=== PATIENT | female | born 1985 | race Hispanic/Latino ===

== ENCOUNTER 2018-08-01 08:30 | Outpatient (RCR) | payer OTHER, SELFPAY | END 2018-08-07 23:59 | LOC: DC 08:30 | PROVIDERS: Visit Provider Obstetrics & Gynecology | DX: Z71.3 Dietary counseling and surveillance (principal); O24.419 Gestational diabetes mellitus in pregnancy, unspecified control | CPT/HCPCS: 97802; G0108 ==

== ENCOUNTER 2018-08-10 10:52 | Outpatient (RCR) | payer OTHER, SELFPAY | END 2018-09-07 23:59 | LOC: DC 10:52 | PROVIDERS: Visit Provider Obstetrics & Gynecology | DX: O24.419 Gestational diabetes mellitus in pregnancy, unspecified control (principal); Z71.3 Dietary counseling and surveillance; Z3A.00 Weeks of gestation of pregnancy not specified ==

== ENCOUNTER 2018-08-14 15:31 | Outpatient (CLI) | payer OTHER, SELFPAY ==
[2018-08-14 15:38] VITALS: BMI 50.3
--- NOTE | 2018-08-15 14:06 | OB.TRI.NOTE ---
History of Present Illness Date of Service: 08/14/18 Was patient seen by the physician?: No Reason For Visit: NON STRESS TEST Date of Service: 08/14/18 History of Present Illness: 33 yo gestational diabetic female with high BMI, for NST. has been referred to MFM due to very high 1 hr glucola. 3 hr GTT not done. Started on Metformin 500 mg po q hs and reports her blood sugars are all under 120 at 1 hr pp. Allergies No Known Allergies Allergy (Verified 08/14/18 15:38) NST - FHR Rate Baby A Variability:: Moderate Accelerations:: 10 x 10 Decelerations:: None NST Reactive:: Yes, Appropriate for gestational age FHR Category:: Category I Uterine Activity:: No UCs noted Impression/Plan 31 6/7 wk gestational diabetes on Metformin NST reassuring, not classically reactive. continue NST or BPP q 3-4 d, follow up in ofc and with MFM as planned
== END 2018-08-14 16:40 | disposition home or self-care (01) ==
PROVIDERS: Referring Provider Obstetrics & Gynecology; Visit Provider Obstetrics & Gynecology
DX: O24.415 Gestational diabetes mellitus in pregnancy, controlled by oral hypoglycemic drugs (principal); Z3A.32 32 weeks gestation of pregnancy
CPT/HCPCS: 59025

== ENCOUNTER 2018-08-24 18:25 | Outpatient (CLI) | payer OTHER, SELFPAY ==
[2018-08-24 18:57] VITALS: BMI 49.3
--- NOTE | 2018-08-24 19:18 | OB.TRI.NOTE ---
- Problem List (1) Gestational diabetes mellitus (GDM) affecting Status: Chronic History of Present Illness Date of Service: 08/24/18 Was patient seen by the physician?: Yes Reason For Visit: NST Date of Service: 08/24/18 Final LORE: 10/06/18 Gestational age: 34 Weeks and 0 Days History of Present Illness: Seen for scheduled NST due to gestational diabetes. Has good movement at home. Allergies No Known Allergies Allergy (Verified 08/14/18 15:38) Physical Exam General: Alert, Oriented x3, Cooperative, No apparent distress Abdomen: Soft, Non Tender, Non-Distended, Gravid, Obese, Appropriate for Gestational Age Extremities:: No edema NST - FHR Rate Baby A Baseline: 1130s Variability:: Moderate Accelerations:: 15 x 15 Decelerations:: None NST Reactive:: Yes, Appropriate for gestational age FHR Category:: Category I Uterine Activity:: none Impression/Plan 33 weeks with reassuring heart rate tracing. F/U in office as scheduled.
== END 2018-08-24 19:25 | disposition home or self-care (01) ==
LOC: WPOUT 18:29 → WP 18:30
PROVIDERS: Visit Provider Obstetrics & Gynecology
DX: O24.415 Gestational diabetes mellitus in pregnancy, controlled by oral hypoglycemic drugs (principal); Z79.84 Long term (current) use of oral hypoglycemic drugs; Z79.899 Other long term (current) drug therapy; Z3A.33 33 weeks gestation of pregnancy
CPT/HCPCS: 59025

== ENCOUNTER 2018-08-31 18:25 | Outpatient (CLI) | payer OTHER, SELFPAY ==
[2018-08-31 18:56] VITALS: BMI 50.8
--- NOTE | 2018-09-01 08:37 | OB.TRI.NOTE ---
History of Present Illness Date of Service: 08/31/18 Was patient seen by the physician?: No Reason For Visit: NST Date of Service: 08/31/18 Final LORE: 10/06/18 Final LORE Source: US <20 weeks Gestational age: 34 Weeks and 6 Days History of Present Illness: 33 yo female at 34 6/7 wk with gestational diabetes on Metformin 1500 mg q hs and 500 mg q am. For scheduled NST. Following with MFM. Has declined insulin and thus far blood sugar OK on Metformin. Morbidly obese Allergies No Known Allergies Allergy (Verified 08/31/18 18:58) NST - FHR Rate Baby A Baseline: 120-130 with accels to 150s Variability:: Moderate Accelerations:: 15 x 15 Decelerations:: None NST Reactive:: Yes, Appropriate for gestational age FHR Category:: Category I Uterine Activity:: no regular UCs Impression/Plan 34 6/7 wk morbidly obese female., gestational diabetes on Metformin NST reactive continue weekly BPP with MFM continue weekly NST 3-4 d later at [facility] for twice weekly surveillance Growth sonos per MFM with plan for induction of labor by 39 wks to C/S if EFW > 4500. Keep ofc appt as scheduled.
--- NOTE | 2018-09-01 08:41 | OB.TRI.HP_ITS ---
History of Present Illness Date of Service: 08/31/18 Was patient seen by the physician?: No Reason For Visit: NST Date of Service: 08/31/18 Final LORE: 10/06/18 Final LORE Source: US <20 weeks Gestational age: 34 Weeks and 6 Days History of Present Illness: 33 yo female at 34 6/7 wk with gestational diabetes on Metformin 1500 mg q hs and 500 mg q am. For scheduled NST. Following with MFM. Has declined insulin and thus far blood sugar OK on Metformin. Morbidly obese Allergies No Known Allergies Allergy (Verified 08/31/18 18:58) NST - FHR Rate Baby A Baseline: 120-130 with accels to 150s Variability:: Moderate Accelerations:: 15 x 15 Decelerations:: None NST Reactive:: Yes, Appropriate for gestational age FHR Category:: Category I Uterine Activity:: no regular UCs Impression/Plan 34 6/7 wk morbidly obese female., gestational diabetes on Metformin NST reactive continue weekly BPP with MFM continue weekly NST 3-4 d later at [facility] for twice weekly surveillance Growth sonos per MFM with plan for induction of labor by 39 wks to C/S if EFW > 4500. Keep ofc appt as scheduled.
== END 2018-08-31 19:45 | disposition home or self-care (01) ==
LOC: WPOUT 18:52 → WP 18:53
PROVIDERS: Referring Provider Obstetrics & Gynecology; Visit Provider Obstetrics & Gynecology
DX: O24.415 Gestational diabetes mellitus in pregnancy, controlled by oral hypoglycemic drugs (principal); O99.213 Obesity complicating pregnancy, third trimester; E66.01 Morbid (severe) obesity due to excess calories; Z79.84 Long term (current) use of oral hypoglycemic drugs; Z3A.34 34 weeks gestation of pregnancy
CPT/HCPCS: 59025; 59050; 99218; G0378

== ENCOUNTER 2018-09-07 18:23 | Outpatient (CLI) | payer OTHER, SELFPAY ==
[2018-09-07 19:14] VITALS: BMI 51.9
--- NOTE | 2018-09-17 21:34 | OB.TRI.NOTE ---
History of Present Illness Was patient seen by the physician?: No Reason For Visit: NST Date of Service: 09/13/18 Final LORE: 10/06/18 Final LORE Source: US <20 weeks Gestational age: 36 Weeks and 5 Days History of Present Illness: 36+ week intrauterine presents for routine nonstress test for elevated body mass index. Allergies No Known Allergies Allergy (Verified 08/31/18 18:58) NST - FHR Rate Baby A NST Reactive:: Yes FHR Category:: Category I Impression/Plan 36+ week intrauterine with reactive nonstress test. Elevated BMI. Continuing present care.
== END 2018-09-07 19:17 | disposition home or self-care (01) ==
LOC: WPOUT 18:27 → WP 18:28
PROVIDERS: Referring Provider Obstetrics & Gynecology; Visit Provider Obstetrics & Gynecology
DX: Z34.93 Encounter for supervision of normal pregnancy, unspecified, third trimester (principal); Z3A.36 36 weeks gestation of pregnancy
CPT/HCPCS: 59025; 59050; 99218; G0378

== ENCOUNTER → 2018-09-10 15:00 | Outpatient (CLI) | payer OTHER, SELFPAY ==
[2018-09-07 19:14] VITALS: BMI 51.9
[2018-09-10 15:50] LABS: Protein, Urine (Random) 38.5 mg/dL (<11.9)
[2018-09-10 16:39] LABS: ALB/GLOB Ratio 0.6 RATIO (0.9-2.4); AST(SGOT) 16 U/L (15-37); Alanine Aminotransfer ALT/SGPT 15 U/L (13-56); Albumin, Serum 2.3 g/dL (3.2-5.0); Alkaline Phosphatase 118 U/L (45-117); Anion Gap 9 (5-15); BUN 11 mg/dL (7-18); BUN/Creat Ratio 17.5 RATIO (10-20); Calcium,Total 8.8 mg/dL (8.5-10.1); Chloride 106 mmol/L (98-107); Creatinine, Serum 0.63 mg/dL (0.55-1.02); EST Glomerular Filtration Rate 116 mL/min (>60); Est Glom Filt Rate - Afr Amer 141 mL/min (>60); Globulin 4.1 g/dL (2.2-4.2); Glucose 82 mg/dL (74-106); LDH 204 U/L (84-246); Potassium 4.1 mmol/L (3.5-5.1); Protein, Total 6.4 g/dL (6.4-8.2); Sodium Level 136 mmol/L (136-145); Uric Acid 4.7 mg/dL (2.6-6.0)
[2018-09-10 16:44] LABS: Hematocrit 34.2 % (37-47); Hemoglobin 10.8 g/dl (12.0-15.0); Mean Corp Hgb Conc 31.6 g/gl (32-36); Mean Corpuscular Hgb 25.6 pg (27.0-32.0); Mean Platelet Vol. 10.2 fl (6.2-12.0); Platelet Count 316 K/mm3 (150-450); RBC Distribution Width CV 14.8 % (11.6-14.6); RBC Distribution Width SD 42.7 fl (35.1-43.9); Red Blood Count 4.22 M/mm3 (4.2-5.4); White Blood Count 11.1 K/mm3 (4.4-11.0)
[2018-09-10 17:28] LABS: Scan Indicated on CBC? Y/N NO
== END ==
DX: O13.3 Gestational [pregnancy-induced] hypertension without significant proteinuria, third trimester (principal); Z3A.00 Weeks of gestation of pregnancy not specified
CPT/HCPCS: 36415; 80053; 82570; 83615; 84156; 84550; 85027

== ENCOUNTER 2018-09-13 17:04 | Outpatient (CLI) | payer OTHER, SELFPAY ==
[2018-09-13 17:29] VITALS: BMI 51.6
--- NOTE | 2018-09-17 21:45 | OB.TRI.NOTE ---
History of Present Illness Date of Service: 09/13/18 Was patient seen by the physician?: No Reason For Visit: NST Date of Service: 09/13/18 Final LORE: 10/06/18 Final LORE Source: US <20 weeks Gestational age: 36 Weeks and 5 Days History of Present Illness: 36+ week intrauterine presents for routine nonstress test for increased BMI. Allergies No Known Allergies Allergy (Verified 08/31/18 18:58) NST - FHR Rate Baby A NST Reactive:: Yes FHR Category:: Category I Impression/Plan 36+ week intrauterine with reactive nonstress test for increased body mass index. Continuing present care.
== END 2018-09-13 18:00 | disposition home or self-care (01) ==
LOC: WPOUT 17:07 → WP 17:08
PROVIDERS: Referring Provider Obstetrics & Gynecology; Visit Provider Obstetrics & Gynecology
DX: Z34.93 Encounter for supervision of normal pregnancy, unspecified, third trimester (principal)
CPT/HCPCS: 59025

== ENCOUNTER 2018-09-20 17:25 | Outpatient (CLI) | payer OTHER, SELFPAY ==
[2018-09-20 18:15] VITALS: BMI 52.0
--- NOTE | 2018-09-21 08:44 | OB.TRI.NOTE ---
History of Present Illness Date of Service: 09/20/18 Was patient seen by the physician?: No Reason For Visit: NST Date of Service: 09/20/18 Final LORE: 10/06/18 Final LORE Source: US <20 weeks Gestational age: 37 Weeks and 5 Days History of Present Illness: 33 yo female diabetic on Glyburide and seeing MFM also. NST / BPP planned twice weekly. presents for scheduled NST +FM. no UCs noted. No VB. Allergies No Known Allergies Allergy (Verified 08/31/18 18:58) NST - FHR Rate Baby A Baseline: 120-130 avg with accels VERY intermittent tracing +FM and 2/2 BMI Variability:: Moderate Accelerations:: 15 x 15 Decelerations:: None NST Reactive:: Appropriate for gestational age FHR Category:: Category I Uterine Activity:: No UCs noted. Impression/Plan 37 5/7 wk gestational diabetic on Metformin for scheduled NST NST with intermittent tracing noted 2/2 movement and BMI Pt tired and painful with belts in place, hungry Home NST reassuring as active FM. ] Keep scheduled NST in 1 wk, appt with MFM on Mon / Tues of next week Planned induction with very unfavorable cervix. on Sun pm 7 cytotec induction Advised at time of ofc visit earlier in day prior to her NST today the induction will likely be prolonged. Cytotec to [place] bulb pitocin, AROM.
== END 2018-09-20 18:45 | disposition home or self-care (01) ==
LOC: WP 18:11 → WPOUT 18:13
PROVIDERS: Referring Provider Obstetrics & Gynecology; Visit Provider Obstetrics & Gynecology
DX: O24.415 Gestational diabetes mellitus in pregnancy, controlled by oral hypoglycemic drugs (principal); Z3A.37 37 weeks gestation of pregnancy
CPT/HCPCS: 59025; 59050; 99218; G0378

== ENCOUNTER → 2018-09-24 14:51 | Outpatient (CLI) | payer OTHER, SELFPAY ==
[2018-09-20 18:15] VITALS: BMI 52.0
[2018-09-24 15:26] LABS: Hematocrit 34.4 % (37-47); Hemoglobin 10.9 g/dl (12.0-15.0); Mean Corp Hgb Conc 31.7 g/gl (32-36); Mean Corpuscular Hgb 25.4 pg (27.0-32.0); Mean Corpuscular Volume 80.2 fL (81-99); Mean Platelet Vol. 9.9 fl (6.2-12.0); Platelet Count 321 K/mm3 (150-450); RBC Distribution Width CV 14.9 % (11.6-14.6); Red Blood Count 4.29 M/mm3 (4.2-5.4); White Blood Count 14.1 K/mm3 (4.4-11.0)
[2018-09-24 15:36] LABS: Protein, Urine (Random) 135.3 mg/dL (<11.9)
[2018-09-24 15:49] LABS: Scan Indicated on CBC? Y/N NO
[2018-09-24 16:02] LABS: ALB/GLOB Ratio 0.6 RATIO (0.9-2.4); AST(SGOT) 23 U/L (15-37); Alanine Aminotransfer ALT/SGPT 23 U/L (13-56); Albumin, Serum 2.4 g/dL (3.2-5.0); Alkaline Phosphatase 122 U/L (45-117); Anion Gap 9 (5-15); BUN 12 mg/dL (7-18); BUN/Creat Ratio 20.4 RATIO (10-20); Calcium,Total 9.4 mg/dL (8.5-10.1); Chloride 106 mmol/L (98-107); Creatinine, Serum 0.59 mg/dL (0.55-1.02); EST Glomerular Filtration Rate 125 mL/min (>60); Est Glom Filt Rate - Afr Amer 152 mL/min (>60); Globulin 4.1 g/dL (2.2-4.2); Glucose 95 mg/dL (74-106); LDH 224 U/L (84-246); Potassium 4.2 mmol/L (3.5-5.1); Protein, Total 6.5 g/dL (6.4-8.2); Sodium Level 139 mmol/L (136-145); Uric Acid 4.3 mg/dL (2.6-6.0)
== END ==
PROVIDERS: Referring Provider Obstetrics & Gynecology Maternal & Fetal Medicine; Visit Provider Obstetrics & Gynecology Maternal & Fetal Medicine
DX: O16.3 Unspecified maternal hypertension, third trimester (principal); Z3A.00 Weeks of gestation of pregnancy not specified
CPT/HCPCS: 36415; 80053; 82570; 83615; 84156; 84550; 85027

== ENCOUNTER 2018-09-28 09:55 | Inpatient (IN) | payer OTHER, SELFPAY ==
[2018-09-28] VITALS (17 sets, daily range): BP systolic 133–176; BP diastolic 65–92; PULSE 81–99; RESP 16–22; TEMP 36.4–36.9; O2SAT 96–99; BMI 54.1
[2018-09-28] MEDS: Lactated Ringers 1,000 ML 999 ML IV (10:25)
[2018-09-28 10:34] LABS: Absolute Lymphocyte Count 2.36 X10^3/ul (0.83-4.51); Absolute Neutrophil Count 9.1 X10^3/uL (2.0-7.7); Basophil# 0.02 X10^3/uL; Basophil% 0.2 % (0-1); Eosinophil# 0.08 X10^3/uL; Eosinophils% 0.7 % (0-5); Hematocrit 34.4 % (37-47); Hemoglobin 10.9 g/dl (12.0-15.0); Lymphocyte # 2.36 X10^3/ul (4.0); Lymphocyte % 19.2 % (19-41); Mean Corp Hgb Conc 31.7 g/gl (32-36); Mean Corpuscular Hgb 25.7 pg (27.0-32.0); Mean Corpuscular Volume 81.1 fL (81-99); Mean Platelet Vol. 9.6 fl (6.2-12.0); Monocyte# 0.64 X10^3/uL; Monocyte% 5.2 % (0-10); Neutrophil # 9.14 X10^3/uL (2.7-7.7); Neutrophil % 74.2 % (47-70); Platelet Count 320 K/mm3 (150-450); RBC Distribution Width CV 15.1 % (11.6-14.6); RBC Distribution Width SD 44.3 fl (35.1-43.9); Red Blood Count 4.24 M/mm3 (4.2-5.4); White Blood Count 12.3 K/mm3 (4.4-11.0)
[2018-09-28 10:35] LABS: POSITIVE COUNT NO; POSITIVE DIFFERENTIAL NO; POSITIVE MORPHOLOGY NO
[2018-09-28 10:42] LABS: International Normalized Ratio 0.9; Prothrombin Time (Protime)PT. 12.1 SECONDS (11.7-14.9)
[2018-09-28 10:43] LABS: Partial Thromboplast Time 28.6 Seconds (24.1-36.2)
[2018-09-28 10:51] LABS: Bedside Glucose 80 mg/dL (70-110)
[2018-09-28] MEDS: Lactated Ringers 1,000 ML 150 ML IV (11:25)
--- NOTE | 2018-09-28 11:39 | PCM.OPRPT ---
Problem List (1) malpresentation Status: Chronic Qualifiers: malpresentation type: transverse lie Fetus number: single or unspecified fetus Qualified Code(s): O32.2XX0 - Maternal care for transverse and oblique lie, not applicable or unspecified (2) Gestational diabetes mellitus (GDM) affecting Status: Chronic Report of Operation Date of Procedure: 09/28/18 Pre-Operative Diagnosis: Term with transverse lie. Mother with gestational hypertension possible preeclampsia. Gestational Diabetes Post-Operative Diagnosis: Same Surgery/Procedure Performed:: Primary Low Transverse Section Description of Surgical Findings:: Normal appearing uterus, ovaries, and fallopian tubes. Live female in left occiput transverse presentation. weight 6lb9oz. Apgars 9/10. Amniotic fluid clear. chemical unit operator: Freddie Mazariegos Type of Anesthesia:: Spinal Anesthesiologist: Dino Haro Special Medications: none Specimen's removed: cord blood Drains: luciano Estimated Blood Loss (mL): 400cc Fluids Replaced: 1500cc LR Description of Procedure: An US was done prior tot taking to the OR which confirmed transverse lie with head on left side. She was taken to the OR with IV running. heart tones were confirmed and normal. She was given three grams of Ancef intravenously for surgical prophylaxis. Spinal anesthesia was the induced without complication. She was then prepped and draped in the supine position with a leftward tilt and a luciano catheter was placed. Once anesthesia was deemed adequate a Pfannensteil skin incision was made approximately 2 cm above the symphysis pubis. The underlying subcutaneous tissue was dissected down to the level of the fascia using sharp and blunt dissection. The fascia was then incised laterally in the midline. The fascial defect was then extended bilaterally with the Cruz scissors. The upper portion of the fascial defect was then grasped with two Gerardo clamps elevated and the underlying rectus muscles dissected off the fascia with blunt and sharp dissection. In a similar fashion the rectus muscles were dissected off the lower fascial defect. The rectus muscles were then in the midline, the peritoneum identified, and then entered sharply. A bladder blade was placed. A bladder flap was created and the bladder blade replaced. A Pfannensteil skin incision was then made in the anterior lower uterine segment. Once the cavity was entered the uterine defect was enlarged using blunt lateral and superior traction. The vertex was then brought to the incision and delivered atraumatically followed by the body. Delayed cord clamping was employed. The mouth was suctioned with a bulb suction and the baby dried. The baby was then handed off to the waiting nurse for evaluation. The placenta was then delivered manually. The uterus was exteriorized and cleared of all clot and membranes. The uterine incision was the repaired in two layers with #1. Vicryl. The cul de sac was cleared of all clot and membranes. The uterus was returned to the abdomen. The uterine defect was inspected and found to be hemostatic. The peritoneum was then closed with a running stitch of 2-0 Vicryl. The rectus muscles were reapproximated with interrupted sutures of 0-Vicryl. The fascia was closed with a running stitch of #21 Stratofix suture. The subcutaneous tissue was closed in two layers with 2-0 Vicryl. The skin was closed with a subcuticular stitch of 4-0 Monocryl. Sponge, lap, needle and instrument counts were correct. She was taken to her recovery room in stable condition. Grafts/Implants Used: none - Complications none - Admit VTE Documentation VTE Present on Admission: No VTE Mechan Device Prophylaxis: SCD's VTE Pharm Prophylaxis ordered?: No Delivery Classification: Scheduled Final LORE: 10/06/18 Final LORE Source: US <20 weeks Gestational age: 39 Weeks and 0 Days Indications for : Malpresentation, Severe PIH, Unfav. Cervix, - - Gestational Diabetes Description of Procedure: see op note Amniotic Membrane Rupture Type: Artificial Amniotic Fluid Description: Clear Placenta Disposition: [facility] Specimen(s) sent to pathology: cord blood Drain: Luciano to straight drain Fluids Replaced: 1500cc Cord Entanglement: None Nuchal Cord Compression: Without compression Cord Vessel Description: 3 Vessels Esitmated Blood Loss (ml): 400cc Gender: Female (1 minute): 9 (5 minute): 10 Delayed cord clamping: Yes Pre-op Antibiotic Given: - - Ancef 3 grams IV x 1 Pt instructed on risks of surgery: Bleeding, Injury to surrounding structure(s) including bowel and bladder Complications: None - Admit VTE Documentation VTE Present on Admission: No VTE Mechan Device Prophylaxis: SCD's VTE Pharm Prophylaxis ordered?: No
[2018-09-28] MEDS: Sodium Citrate/Citric Acid 30 ML UDC PO (11:52)
[2018-09-28] MEDS: Oxytocin 30 units/NS 500 ml 30 UNITS/500 ML IV.SOLN 167 UNITS IV (12:33)
[2018-09-28] MEDS: Ketorolac 15 MG/ML Vial 30 MG IV ×2 (12:58→18:00)
[2018-09-28 13:56] LABS: Bedside Glucose 73 mg/dL (70-110)
[2018-09-28] MEDS: Lactated Ringers 1,000 ML 100 ML IV ×2 (14:44→18:10)
--- NOTE | 2018-09-28 14:59 | NURSING ---
Chloraprep scrub completed by Misael KAM. Incision site scrubbed for two minutes continuously, followed by abdomen and upper legs/perineum. 3 total scrub brushes used.
[2018-09-28] MEDS: metFORMIN HCl 500 MG Tablet 1500 MG PO (18:00)
[2018-09-28] MEDS: 0.9% Saline Lock 10 ML Syringe IV (18:00)
[2018-09-28] MEDS: Cefazolin 1 GM/50 ML BAG IV (20:27)
[2018-09-29] VITALS (11 sets, daily range): BP systolic 118–153; BP diastolic 68–90; PULSE 75–99; RESP 14–18; TEMP 36.6–37.1; O2SAT 95–99
[2018-09-29] MEDS: Ketorolac 15 MG/ML Vial 30 MG IV ×4 (00:19→17:06)
[2018-09-29] MEDS: Cefazolin 1 GM/50 ML BAG IV (04:10)
[2018-09-29] MEDS: Lactated Ringers 1,000 ML 100 ML IV (04:10)
[2018-09-29] MEDS: 0.9% Saline Lock 10 ML Syringe IV ×3 (06:08→17:06)
[2018-09-29 06:30] LABS: Bedside Glucose 78 mg/dL (70-110)
[2018-09-29 06:31] LABS: Hematocrit 27.4 % (37-47); Hemoglobin 8.6 g/dl (12.0-15.0); Mean Corp Hgb Conc 31.4 g/gl (32-36); Mean Corpuscular Hgb 25.5 pg (27.0-32.0); Mean Corpuscular Volume 81.3 fL (81-99); Mean Platelet Vol. 9.4 fl (6.2-12.0); Platelet Count 267 K/mm3 (150-450); RBC Distribution Width CV 15.1 % (11.6-14.6); RBC Distribution Width SD 43.4 fl (35.1-43.9); Red Blood Count 3.37 M/mm3 (4.2-5.4); Scan Indicated on CBC? Y/N NO; White Blood Count 12.8 K/mm3 (4.4-11.0)
[2018-09-29] MEDS: metFORMIN HCl 500 MG Tablet PO (08:32)
--- NOTE | 2018-09-29 09:54 | PN.OBGYN_ITS ---
Subjective: Doing well. Sitting in chair. Pain reasonably controlled. Tolerating PO. No N/V. Bleeding light, breast feeding. Objective: Afeb VSS. Hgb appropriate. - Physical Exam General: Alert, Oriented x3, Cooperative, No apparent distress Lungs: Clear to auscultation, Normal air movement Cardiovascular: Regular rate, Regular Rhythm Abdomen: Soft, Non Tender, Non-Distended, - - Incision dressing dry Extremities: No edema Neurological: Neuro grossly intact Psych/Mental Status: Normal Affect Comment: Lochia light Vital Signs Temp Pulse Resp BP Pulse Ox 98.4 F 99 16 120/68 96 09/29/18 08:29 09/29/18 08:29 09/29/18 08:29 09/29/18 08:29 09/29/18 08:29 Oxygen Delivery Method Room Air Weight: 286 lb 6.087 oz Body Mass Index (BMI) 54.1 Intake and Output for Last 24 Hours 09/27/18 09/28/18 09/29/18 23:59 23:59 23:59 Intake Total 2249 / 2249 1703 / 1703 Output Total 450 / 450 1200 / 1200 Balance 1799 / 1799 503 / 503 Laboratory Tests Past 24 Hrs 09/28/18 09/28/18 09/28/18 10:15 10:15 10:15 WBC 12.3 H RBC 4.24 Hgb 10.9 L Hct 34.4 L MCV 81.1 MCH 25.7 L MCHC 31.7 L RDW 15.1 H RDW Differential 44.3 H Plt Count 320 MPV 9.6 Immature Gran % (Auto) 0.500 Neut % (Auto) 74.2 H Lymph % (Auto) 19.2 [place] % (Auto) 5.2 Eos % (Auto) 0.7 Baso % (Auto) 0.2 Absolute Neuts (auto) 9.1 H Absolute Lymphs (auto) 2.36 Total Counted Not Reportable PT 12.1 INR 0.9 APTT 28.6 Blood Type O POSITIVE Antibody Screen NEGATIVE 09/29/18 06:15 WBC 12.8 H RBC 3.37 L Hgb 8.6 L Hct 27.4 L MCV 81.3 MCH 25.5 L MCHC 31.4 L RDW 15.1 H RDW Differential 43.4 Plt Count 267 MPV 9.4 Immature Gran % (Auto) Neut % (Auto) Lymph % (Auto) [place] % (Auto) Eos % (Auto) Baso % (Auto) Absolute Neuts (auto) Absolute Lymphs (auto) Total Counted PT INR APTT Blood Type Antibody Screen POC Glucose 09/29/18 09/28/18 09/28/18 06:22 13:51 10:46 POC Glucose 78 73 80 Medical Necessity - Tobacco Use Smoking Status: Former smoker Assessment/Plan Doing well on POD#1 S/P primary LTCS. Plan to d/c mustapha later today. Routine PO care.
--- NOTE | 2018-09-29 09:59 | DCINST_ITS ---
Discharge Diet: No Restrictions Discharge Activity: Return to Normal Activity, May Not Drive, May not drive while taking narcotic pain medications., May Shower Return to work on:: 11/29/18 May shower in (days): 0 May resume sexual activity in: 4-6 weeks Call your doctor if your incision/area has: Continuous Slow Oozing, Sudden Increased Bleeding, Increased Pain/ Swelling, Increased Redness, Foul Smelling Discharge, Swelling at the incision site Call your doctor if you observe: Fever of 101 or Higher, Inability to urinate, Inability to have a bowel movement, Using more than one pad per hour, Shortness of breath, Chest pain, Calf discomfort, Uncontrolled pain Remove Dressing in (days):: 3 Cleanse incision/area with: Soap & Water Additional Instructions: If you experience any of the following, contact your healthcare provider. * Bleeding that soaks a pad every hour for 2 hours * Fever 100.4 or higher * Unrelieved incision or abdominal pain * Swelling, redness, discharge or bleeding from your incision or episiotomy site * Your incision begins to separate * Problems urinating (including inability to urinate or burning while urinating). * Visual changes * Severe headache * Flu-like symptoms * Pain or redness in one of both of your breasts * Pain, warmth, tenderness or swelling in your legs, especially the calf area * Frequent nausea and vomiting * Symptoms of depression or anxiety If you experience any of the following, call 911 or go to the nearest Emergency Room. * Chest pain * Problems breathing * Seizure activity * Partial or complete paralysis of a body part, slurred speech, weakness or drooping of the face, or a sudden inability to walk or hold your balance Allergies/Adverse Reactions: Allergies No Known Allergies Allergy (Verified 08/31/18 18:58) Medications to take at Discharge Vits [Prenatabs FA ] 3 tablet PO DAILY 08/14/18 Loratadine [Claritin] 10 mg PO DAILY 08/24/18 Ibuprofen [Motrin] 600 mg PO Q6H PRN PRN #30 tab 09/29/18 Oxycodone [Oxyir] 5 - 10 mg PO Q4H PRN PRN 7 Days #30 tab 09/29/18 The following prescriptions were given: Ibuprofen [Motrin] 600 mg PO Q6H PRN PRN #30 tab PRN Reason: pain or cramping Prescription Printed Oxycodone [Oxyir] 5 - 10 mg PO Q4H PRN PRN 7 Days #30 tab PRN Reason: Mod-Severe Pain (4-01/17) Prescription Printed Follow-Up: Call to make an appointment with your doctor for an incision check in 1-2 weeks. You will also need a 6 week post- follow up appointment. Test results from this visit will be discussed in further detail at your follow- up appointment, if applicable. Please Follow Up With: Alexander Toney MD When: one week Proposed Discharge Date: 09/29/18
[2018-09-29] MEDS: Acetaminophen 500 MG Tablet 1000 MG PO ×2 (12:24→23:11)
[2018-09-29] MEDS: metFORMIN HCl 500 MG Tablet 1500 MG PO (17:06)
[2018-09-29] MEDS: Senna/Docusate Sodium 1 Tablet PO (20:44)
[2018-09-30] MEDS: Ketorolac 15 MG/ML Vial 30 MG IV ×2 (00:05→05:54)
[2018-09-30] MEDS: 0.9% Saline Lock 10 ML Syringe IV (00:06)
[2018-09-30 02:15] VITALS: BP 152/92; PULSE 91; RESP 18; TEMP 36.5
--- NOTE | 2018-09-30 08:48 | PCM.PN.OB ---
Subjective: Doing well. Pain reasonably controlled. Bleeding light. Breast feeding. Objective: Afeb VSS - Physical Exam General: Alert, Oriented x3, Cooperative, No apparent distress Abdomen: Soft, Non Tender, Non-Distended, - - Incision dressing dry Extremities: No edema Skin: No rashes Neurological: Neuro grossly intact Psych/Mental Status: Normal Affect Comment: Lochia light Vital Signs Temp Pulse Resp BP Pulse Ox 97.7 F L 91 18 152/92 H 96 09/30/18 02:15 09/30/18 02:15 09/30/18 02:15 09/30/18 02:15 09/29/18 20:46 Oxygen Delivery Method Room Air Weight: 286 lb 6.087 oz Body Mass Index (BMI) 54.1 Intake and Output for Last 24 Hours 09/28/18 09/29/18 09/30/18 23:59 23:59 23:59 Intake Total 2249 / 2249 2621.1 / 2621.1 Output Total 450 / 450 4050 / 4050 Balance 1799 / 1799 -1428.9 / -1428.9 Medical Necessity - Tobacco Use Smoking Status: Former smoker Assessment/Plan Doing well on POD#2. Doing well. Continue routine PO care.
--- NOTE | 2018-09-30 08:51 | PCM.DC.SUM ---
Discharge Date and Diagnosis Date of Admission: 09/28/18 Date of Discharge: 10/01/18 - Primary Discharge Diagnosis S/P Primary LTCS - Secondary Discharge Diagnosis Chronic Problems Gestational diabetes mellitus (GDM) affecting (Chronic) malpresentation (Chronic) Hospital Course and Treatment Operations: - - Primary LTCS Summary of Care Provided: The patient is a 33 year old F [admitted for primary section secondary to transverse lie and gestational hypertension with recommendation for delivery by MFM. This was performed without complication with delivery of a live female without complication. Post operative course unremarkable. Discharged home on POD#3.] - Physical Exam Vital Signs Temp Pulse Resp BP Pulse Ox 97.7 F L 91 18 152/92 H 96 09/30/18 02:15 09/30/18 02:15 09/30/18 02:15 09/30/18 02:15 09/29/18 20:46 Oxygen Delivery Method Room Air Weight: 286 lb 6.087 oz Body Mass Index (BMI) 54.1 Intake and Output for Last 24 Hours 09/28/18 09/29/18 09/30/18 23:59 23:59 23:59 Intake Total 2249 / 2249 2621.1 / 2621.1 Output Total 450 / 450 4050 / 4050 Balance 1799 / 1799 -1428.9 / -1428.9 Discharge Diet: No Restrictions Discharge Activity: Return to Normal Activity, May Not Drive, May not drive while taking narcotic pain medications., May Shower Return to work on:: 11/29/18 May shower in (days): 0 May resume sexual activity in: 4-6 weeks Call your doctor if your incision/area has: Continuous Slow Oozing, Sudden Increased Bleeding, Increased Pain/ Swelling, Increased Redness, Foul Smelling Discharge, Swelling at the incision site Call your doctor if you observe: Fever of 101 or Higher, Inability to urinate, Inability to have a bowel movement, Using more than one pad per hour, Shortness of breath, Chest pain, Calf discomfort, Uncontrolled pain Remove Dressing in (days):: 3 Cleanse incision/area with: Soap & Water Home Medications: Medications to take at Discharge RX: Vits [Prenatabs FA ] 3 tablet PO DAILY 08/14/18 RX: Loratadine [Claritin] 10 mg PO DAILY 08/24/18 RX: Ibuprofen [Motrin] 600 mg PO Q6H PRN PRN #30 tab 09/29/18 RX: Oxycodone [Oxyir] 5 - 10 mg PO Q4H PRN PRN 7 Days #30 tab 09/29/18 Following Prescrptions Were Given to Patient: RX: Ibuprofen [Motrin] 600 mg PO Q6H PRN PRN #30 tab PRN Reason: pain or cramping Prescription Printed RX: Oxycodone [Oxyir] 5 - 10 mg PO Q4H PRN PRN 7 Days #30 tab PRN Reason: Mod-Severe Pain (4-01/17) Prescription Printed Please Follow Up With: Alexander Toney MD When: one week Disposition: Home Minutes spent on discharge:: 15 Patient Condition:: Good Medical Necessity - Tobacco Use Smoking Status: Former smoker Meaningful Use Info Meaningful Use Diagnoses (Choose all that apply): None applicable
[2018-09-30 08:56] VITALS: PULSE 82; RESP 18; TEMP 36.6
[2018-09-30 11:00] VITALS: BP 156/90
[2018-09-30] MEDS: Ibuprofen 600 MG Tablet PO ×2 (12:23→20:16)
[2018-09-30] MEDS: Prenatal Vits Tablet 3 TABLET PO (12:25)
[2018-09-30 15:05] VITALS: PULSE 78; RESP 18; TEMP 36.6
[2018-09-30] MEDS: Acetaminophen 500 MG Tablet 1000 MG PO (16:17)
[2018-09-30 16:28] VITALS: BP 151/78
[2018-09-30] MEDS: Senna/Docusate Sodium 1 Tablet PO (20:17)
[2018-09-30 20:21] VITALS: BP 156/97; PULSE 96; RESP 18; TEMP 36.4
[2018-10-01 02:00] VITALS: BP 156/93; PULSE 90; RESP 18; TEMP 36.7
[2018-10-01] MEDS: Acetaminophen 500 MG Tablet 1000 MG PO ×2 (02:21→12:52)
[2018-10-01 07:20] VITALS: BP 151/91; PULSE 90; RESP 20
--- NOTE | 2018-10-01 07:53 | PCM.PN.OB ---
Subjective: POD#3 Primary C/S PIH, transverse lie Gestational diabetes Doing OK. Taking Ibuprofen and tylenol. Hoping to avoid narcotics (but reminded her she has those also to take prn). breast feeding. Would like to go home toady after assistance with area development consultant, nursing. Asking when to take dressing off, driving restrictions, etc. Objective: Sitting up in chair eating breakfast. NAD Intermittent eye contact. - Physical Exam General: Alert, Oriented x3, Cooperative, No apparent distress HEENT: Atraumatic Neck: Supple Abdomen: Soft Skin: Incision - Mepilex dressing CDI. Neurological: Cranial nerves II-XII grossly intact Psych/Mental Status: Normal Affect Vital Signs Temp Pulse Resp BP Pulse Ox 98.0 F 90 18 156/93 H 96 10/01/18 02:00 10/01/18 02:00 10/01/18 02:00 10/01/18 02:00 09/29/18 20:46 Oxygen Delivery Method Room Air Weight: 129.9 kg Body Mass Index (BMI) 54.1 Intake and Output for Last 24 Hours 09/29/09/30/10/01/18 23:59 23:59 23:59 Intake Total 2621.1 / 2621.1 Output Total 4050 / 4050 Balance -1428.9 / -1428.9 Medical Necessity - Tobacco Use Smoking Status: Former smoker Assessment/Plan POD#3 Primary C/S for PIH, approx 37 wks EGA Gestational diabetic, transverse lie Stable postop Requests dischg home today RTO in 1-2 wk for postop incision check, prn sooner. Plan 6 wk 2 hr GTT to determine if pregestational diabetes.
[2018-10-01] MEDS: Ibuprofen 600 MG Tablet PO (08:30)
[2018-10-01] MEDS: Senna/Docusate Sodium 1 Tablet PO (08:30)
[2018-10-01 14:00] VITALS: BP 151/96; PULSE 88; RESP 18; TEMP 36.9
[2018-10-01 17:55] VITALS: BP 154/88; PULSE 88; RESP 18
== END 2018-10-01 18:00 | disposition home or self-care (01) | DRG 788 ==
PROVIDERS: Admitting Provider Obstetrics & Gynecology; Referring Provider Obstetrics & Gynecology; Visit Provider Obstetrics & Gynecology
PROC: 10D00Z1 Extraction of Products of Conception, Low, Open Approach (ICD-10-PCS; CPT 59514; principal; 2018-09-28 11:45)
DX: O32.2XX0 Maternal care for transverse and oblique lie, not applicable or unspecified (principal); O13.4 Gestational [pregnancy-induced] hypertension without significant proteinuria, complicating childbirth; O24.425 Gestational diabetes mellitus in childbirth, controlled by oral hypoglycemic drugs; Z87.891 Personal history of nicotine dependence; Z3A.37 37 weeks gestation of pregnancy; Z37.0 Single live birth
CPT/HCPCS: 76815; 82962; 85025; 85027; 85610; 85730; 86850; 86900; 99218; J7120; A4216; G0378; J2405

== ENCOUNTER 2019-06-16 13:58 | Emergency (ER) | payer OTHER, SELFPAY ==
[2018-09-28 10:27] VITALS: BMI 54.1
[2019-06-16 13:59] VITALS: BP 151/90; PULSE 92; RESP 16; TEMP 36.6; O2SAT 99; BMI 53.0
--- NOTE | 2019-06-16 14:09 | ED.VIS.GI ---
History of Present Illness Informant: Patient, Family - Abdominal Pain/Flank Pain Onset: Today Context: Sudden Onset Timing: Continuous Quality: Sharp, Stabbing Location: Epigastric, RUQ, LUQ Current Severity: Severe Maximum Severity: Severe Worsened by: Food Relieved by: Remaining Still - Nausea/Vomiting/Emesis GI Symptom: Nausea, Vomiting Onset: Today Quality: Nonbilious Severity: Severe Episodes: 2 - Diarrhea/Melena/Hematochezia GI Symptom: Negative for: Diarrhea, Melena, Hematochezia Associated Symptoms: Negative for: Dysuria, Frequency, Hematuria, Urgency Narrative: 34-year-old female denies any significant past medical history presents to the emergency department with abdominal pain nausea and vomiting. She woke up at 5 AM today with some sharp stabbing epigastric abdominal pain that radiates to her left and right upper quadrant and her back. Pain is been constant. It is sharp. She has had 2 episodes of nonbloody emesis. She had 1 normal bowel movement. No hematemesis, coffee-ground emesis, melena or hematochezia. No chest pain or shortness of breath. No urinary symptoms. No back pain. Children have been sick with influenza over the last couple of weeks. She denies history of GERD or peptic ulcer disease. She denies abdominal surgery history other than a . No recent travel or antibiotic use. Prior similar symptoms: No Recent Illness/Hospitalization: No <Martin Seaman - Last Filed: 06/16/19 18:02> <Boo Jay - Last Filed: 06/16/19 23:14> Chief Complaint: Abd Pain Past Medical History Prior records reviewed: Yes Past Medical History: None Surgical History: - - Lives: With Family Smoking Status: Former smoker Alcohol: None Drugs: None <Martin Seaman - Last Filed: 06/16/19 18:02> <Boo Jay - Last Filed: 06/16/19 23:14> - Allergies and Home Meds Allergies/Adverse Reactions: Allergies No Known Allergies Allergy (Verified 06/16/19 14:00) Primary Care Physician: Martin Osorio MD [STAFF PHYSICIAN] - As soon as possible Naomie Henderson MD [STAFF PHYSICIAN] - As soon as possible Review of Systems All systems negative except as indicated General: Denies: Chills, Fever, Malaise Eyes: Denies: Visual changes - bilaterally, Blurred Vision - bilaterally, Diplopia ENT: Denies: Rhinorrhea, Sore throat Cardiovascular: Denies: Chest pain, Palpitations, Heart racing Respiratory: Denies: Dyspnea, Cough, Sputum, Dyspnea on exertion Gastrointestinal: Reports: Abdominal pain, Nausea, Vomiting. Denies: Diarrhea, Constipation, Melena, Hematochezia Genitourinary: Denies: Dysuria, Hematuria, Frequency Musculoskeletal: Denies: Myalgias, Arthralgias, Neck pain, Back pain, Swelling, Extremity Pain Skin: Denies: Rash, Abscess, Abrasions, Wounds Neurological: Denies: Headache, Weakness, Parasthesia, Numbness <Martin Seaman - Last Filed: 06/16/19 18:02> Physical Exam Vital Signs/Narrative: Vital Signs Temp Pulse Resp BP Pulse Ox 06/16/19 13:59 97.8 F 92 16 151/90 H 99 <Martin Seaman - Last Filed: 06/16/19 18:02> Diagnostic/Tx/Re-eval - Medical Decision Making Patient declined analgesia multiple times with I did give her IV fluids and IV Zofran. CBC was remarkable for a white blood cell count of 13. CMP and lipase were both within normal limits. Urinalysis unremarkable as well. Due to the patient's symptoms we obtained a right upper quadrant ultrasound. It demonstrated cholelithiasis without sonographic evidence for acute cholecystitis. Repeat exam the patient's abdomen is soft and nontender. She is tolerating by mouth. Discussed this with her. She will follow-up with primary care, to which she was referred as she does not have a primary care physician in general surgery for further work-up including possible HIDA scan. She was agreeable with our plan we will discharge her home with Zofran all of her questions were answered. Impressions Gallbladder Ultrasound 06/16/19 15:16 IMPRESSION: Cholelithiasis without sonographic evidence of acute cholecystitis. However, please note that the category development analyst reports a positive sonographic Berger sign. If there is continued concern for acute cholecystitis, further evaluation with a nuclear medicine hepatobiliary study can be performed. Enlarged, fatty liver. No focal hepatic lesions identified. Electronically Signed: Jay Castañeda, at 17:29 EDT Tel , Service support , 06/16/19 15:16 US Gallbladder [Gallbladder] [US] Stat Laboratory Results 06/16/19 06/16/19 06/16/19 14:20 14:20 14:32 WBC RBC Hgb Hct MCV MCH MCHC RDW Std Deviation RDW Coeff of David Plt Count MPV Immature Gran % (Auto) Neut % (Auto) Lymph % (Auto) [place] % (Auto) Eos % (Auto) Baso % (Auto) Absolute Neuts (auto) Absolute Lymphs (auto) Nucleated RBC % Sodium 139 Potassium 5.1 Chloride 109 H Carbon Dioxide 20.0 L Anion Gap 10 BUN 9 Creatinine 0.77 Estim Creat Clear Calc 82.19 Est GFR (MDRD) Af Amer 111 Est GFR (MDRD) Non-Af 92 BUN/Creatinine Ratio 11.7 Glucose 149 H Calcium 9.2 Total Bilirubin 0.30 AST 44 H ALT 35 Alkaline Phosphatase 71 Total Protein 8.3 H Albumin 3.3 Globulin 5.0 H Albumin/Globulin Ratio 0.7 L Lipase 77 Urine Color Yellow Urine Clarity Clear Urine pH 5.0 Ur Specific [place] 1.025 Urine Protein 30 H Urine Glucose (UA) Normal Urine Ketones 50 H Urine Occult Blood Negative Urine Nitrite Negative Urine Bilirubin Negative Urine Urobilinogen Normal Ur Leukocyte Esterase Negative Urine RBC 0 SEEN Urine WBC 0-5 SEEN Ur Squamous Epith Cells 0-5 SEEN Urine Bacteria 0 SEEN Urine Mucus 0 SEEN Urine Test Negative 06/16/19 14:46 WBC 13.5 H RBC 5.23 Hgb 14.0 Hct 44.3 MCV 84.7 MCH 26.8 L MCHC 31.6 L RDW Std Deviation 41.5 RDW Coeff of David 13.4 Plt Count 246 MPV 9.4 Immature Gran % (Auto) 0.800 Neut % (Auto) 87.1 H Lymph % (Auto) 9.9 L [place] % (Auto) 1.9 Eos % (Auto) 0.1 Baso % (Auto) 0.2 Absolute Neuts (auto) 11.8 H Absolute Lymphs (auto) 1.34 Nucleated RBC % 0 Sodium Potassium Chloride Carbon Dioxide Anion Gap BUN Creatinine Estim Creat Clear Calc Est GFR (MDRD) Af Amer Est GFR (MDRD) Non-Af BUN/Creatinine Ratio Glucose Calcium Total Bilirubin AST ALT Alkaline Phosphatase Total Protein Albumin Globulin Albumin/Globulin Ratio Lipase Urine Color Urine Clarity Urine pH Ur Specific [place] Urine Protein Urine Glucose (UA) Urine Ketones Urine Occult Blood Urine Nitrite Urine Bilirubin Urine Urobilinogen Ur Leukocyte Esterase Urine RBC Urine WBC Ur Squamous Epith Cells Urine Bacteria Urine Mucus Urine Test <Martin Seaman - Last Filed: 06/16/19 18:02> - Medical Decision Making I supervised the PA and have performed my own pertinent history and physical. Results and treatment plan were discussed. HPI: Patient has epigastric bowel pain that came on acutely at 5:00 this morning. She is vomited twice. No blood in her emesis. No diarrhea. Her last bowel was today. She denies any history of spicy or fatty food intolerance. PE: Abdomen: Soft, moderate epigastric tenderness mild right upper quadrant tenderness no guarding, rebound, or peritoneal signs. Negative Berger sign. Emergency Department course: Labs show a white count of 13.5. This may be due to demargination from vomiting. Otherwise they are unremarkable. Normal LFTs and lipase. Right upper quadrant ultrasound shows gallstones, but no objective signs of cholecystitis. The wall is normal, the common bile duct is normal, and there is no pericholecystic fluid. The patient's exam and history are not consistent with cholecystitis. Treatment Plan: Patient will be discharged with Zofran. Instructed to follow-up with her primary care physician 1 to 2 days if not improving. She is also given the phone number for Dr. Osorio to follow-up with for her gallstones. Return to the emergency department for any worsening symptoms. This note was generated with [employer] dictation software. It may contain incorrect words, spelling, and punctuation that were not noted in review of the chart prior to signing. <Boo Jay - Last Filed: 06/16/19 23:14> ED Disposition <Martin Seaman - Last Filed: 06/16/19 18:02> <Boo Jay - Last Filed: 06/16/19 23:14> - Plan for ED Patient: Disposition: Home or Assisted Living Diagnosis: Nausea and vomiting, Upper abdominal pain, Cholelithiasis Instructions: Gallstones, ABDOMINAL PAIN, Unknown Cause, (Female) Prescriptions: Ondansetron [Zofran Odt] 4 mg PO Q8H PRN PRN #10 tab PRN Reason: Nausea Prescription Printed Referrals: Naomie Henderson MD [STAFF PHYSICIAN] - As soon as possible Martin Osorio MD [STAFF PHYSICIAN] - As soon as possible
[2019-06-16 14:39] LABS: Bacteria 0 SEEN /hpf (None Seen); Mucous, Urine 0 SEEN /hpf (<or=2+); Red Blood Cells-Urine 0 SEEN /hpf (0-5)
[2019-06-16] MEDS: 0.9% Normal Saline 1,000 ML 1000 ML IV (14:45)
[2019-06-16] MEDS: Ondansetron 4 MG/2 ML Vial IV ×2 (14:45→18:23)
[2019-06-16 14:52] LABS: Color, Urine Yellow (Yellow); Glucose, Dipstick Normal (Normal); Ketone-Dipstick 50 mg/dl (Negative); Leukocyte Esterase-Dipstick Negative /ul (Negative); Nitrite-Dipstick Negative (Negative); Occult Blood-Urine Negative /ul (Negative); Protein-Dipstick 30 mg/dl (Negative); Specific Gravity, Urine 1.025 (1.002-1.030); Urine Bilirubin Dipstick Negative (Negative); Urine Clarity Clear (Clear); Urine Urobilinogen Normal (Normal)
[2019-06-16 14:54] LABS: Absolute Lymphocyte Count 1.34 X10^3/uL (0.83-4.51); Absolute Neutrophil Count 11.8 X10^3/uL (2.0-7.7); Basophil# 0.03 X10^3/uL; Basophil% 0.2 % (0-1); Eosinophil# 0.01 X10^3/uL; Eosinophils% 0.1 % (0-5); Hematocrit 44.3 % (37-47); Lymphocyte # 1.34 X10^3/ul (4.0); Lymphocyte % 9.9 % (19-41); Mean Corp Hgb Conc 31.6 g/dL (32-36); Mean Corpuscular Hgb 26.8 pg (27.0-32.0); Mean Corpuscular Volume 84.7 fL (81-99); Mean Platelet Vol. 9.4 fl (6.2-12.0); Monocyte# 0.26 X10^3/uL; Monocyte% 1.9 % (0-10); NRBC Flagged by Analyzer 0 % (0-5); Neutrophil # 11.79 X10^3/uL (2.7-7.7); Neutrophil % 87.1 % (47-70); Platelet Count 246 K/mm3 (150-450); RBC Distribution Width CV 13.4 % (11.6-14.6); RBC Distribution Width SD 41.5 fl (35.1-43.9); Red Blood Count 5.23 M/mm3 (4.2-5.4); White Blood Count 13.5 K/mm3 (4.4-11.0)
[2019-06-16 14:56] LABS: Internal QC Validated? YES +Cl - CLEAR BKGD; Pregnancy, Urine Negative Negative
[2019-06-16 15:08] LABS: Squamous Epithelial Cells - UA 0-5 SEEN /hpf (5-10); White Blood Cells 0-5 SEEN /hpf (0-5)
--- NOTE | 2019-06-16 15:16 | US_ITS ---
STUDY: ABDOMINAL ULTRASOUND - RIGHT UPPER QUADRANT REASON FOR VISIT: Female, 34 years old. Abdominal pain TECHNIQUE: Ultrasound evaluation of the right upper quadrant was performed with real-time and static saravia-scale imaging. TECHNICAL QUALITY: Limited by body habitus. COMPARISON: None. FINDINGS: Liver: The liver measures 22.2 cm. There is increased echogenicity consistent with fatty infiltration. The bile ducts are within normal limits. There is hepatic color flow. The direction of portal flow is hepatopetal. There is no demonstrated mass lesion. Gallbladder: Normal distended gallbladder. The gallbladder wall measures 3 mm. There is a positive sonographic Berger''s sign. There is no pericholecystic fluid. There are multiple echogenic structures within the gallbladder, consistent with multiple gallstones. Common Bile Duct (C.B.D.): The common bile duct measures 4 mm. Pancreas: Normal size of the head, body and tail of the pancreas. There is normal echogenicity of the pancreas. There is no demonstrated pancreatic mass or cyst. Right Kidney: Normal size of the right kidney. The right kidney measures 11.3 cm. Normal renal cortex. There is no demonstrated renal mass or cyst. There is no right hydronephrosis. US/Gallbladder IMPRESSION: Cholelithiasis without sonographic evidence of acute cholecystitis. However, please note that the fuel cell engineer reports a positive sonographic Berger sign. If there is continued concern for acute cholecystitis, further evaluation with a nuclear medicine hepatobiliary study can be performed. Enlarged, fatty liver. No focal hepatic lesions identified. Electronically Signed: Jay Castañeda, at 17:29 EDT Tel , Service support ,
[2019-06-16 15:20] LABS: ALB/GLOB Ratio 0.7 RATIO (0.9-2.4); AST(SGOT) 44 U/L (15-37); Alanine Aminotransfer ALT/SGPT 35 U/L (13-56); Albumin, Serum 3.3 g/dL (3.2-5.0); Alkaline Phosphatase 71 U/L (45-117); Anion Gap 10 (5-15); BUN 9 mg/dL (7-18); BUN/Creat Ratio 11.7 RATIO (10-20); Calcium,Total 9.2 mg/dL (8.5-10.1); Chloride 109 mmol/L (98-107); Creatinine, Serum 0.77 mg/dL (0.55-1.02); EST Glomerular Filtration Rate 92 mL/min (>60); Est Glom Filt Rate - Afr Amer 111 mL/min (>60); Estimated Creatinine Clearance 82.19 ml/min; Glucose 149 mg/dL (74-106); Lipase 77 U/L (73-393); Potassium 5.1 mmol/L (3.5-5.1); Protein, Total 8.3 g/dL (6.4-8.2); Sodium Level 139 mmol/L (136-145)
[2019-06-16 17:00] VITALS: BP 165/74; PULSE 71; RESP 16; O2SAT 98
--- NOTE | 2019-06-16 17:27 | ED.RN ---
SEPSIS SCREEN CANCELED, NOT CURRENT RISK PER MD
[2019-06-16 18:55] VITALS: BP 148/90; PULSE 92; RESP 16; O2SAT 99
== END 2019-06-16 18:56 | disposition home or self-care (01) ==
PROVIDERS: Emergency Provider Physician Assistant Medical
DX: K80.20 Calculus of gallbladder without cholecystitis without obstruction (principal); K76.0 Fatty (change of) liver, not elsewhere classified; Z87.891 Personal history of nicotine dependence
CPT/HCPCS: 76705; 80053; 81001; 81025; 83690; 85025; 96361; 96374; 96376; 99285; J7030; A4216; J2405

== ENCOUNTER 2019-06-20 17:49 | Observation (INO) | payer OTHER, SELFPAY ==
[2019-06-19 14:59] VITALS: BMI 53.0
[2019-06-20] VITALS (24 sets, daily range): BP systolic 140–171; BP diastolic 59–98; PULSE 80–105; RESP 16–21; TEMP 36.4–37.2; O2SAT 91–98; BMI 52.2; BMI 53.2
--- NOTE | 2019-06-20 | GALL_PTH ---
PATIENT: AKBAR COOK LOC: MS2 U#:[id number] AGE/SX: 34/F ROOM: MS208 RE06/20/[address]: Dr. Martin Osorio MD : 1985 BED: 1 DIS: 06/21/2019 SPEC #: [id number] RECD: 06/21/19 07:53 STATUS: MALIK REEverett #: [id number] VIGNESH: 06/20/19 00:[address]: Martin Osorio DEPT: SURGICAL PATHOLOGY RECD BY: Kemal Hong ENTERED: 06/21/19 07:53 SP TYPE: SHIREEN CUEVAS DR: No Primary Care Phys Tissues: Gallbladder, NOS Procedures: Surgery Specimen Level IV HEADER OPERATION: Laparoscopic cholecystectomy with IOC PRE-OP DIAGNOSIS: Acute cholecystitis K81.0 TISSUE SUBMITTED: Gallbladder MICROSCOPIC DIAGNOSIS Gallbladder, cholecystectomy: Acute and chronic hemorrhagic cholecystitis, cholelithiasis and focal cholesterolosis. Focal dysplastic changes. Minute attached pieces of liver parenchymal tissue with macrovesicular steatosis. DEBBIE:rizwana 06/25/19 COMMENT Case has been reviewed in consultation with Dr. Gutierrez who concurs with the above diagnosis. IDC:AM MICROSCOPIC DESCRIPTION Slides are reviewed. GROSS DESCRIPTION Received is one container labeled with the patient's name and designated gallbladder. The specimen consists of a gallbladder measuring 8.5 x 3.5 x 2.8 cm. The external surface is smooth and glistening. Focally, it is granular, hemorrhagic and contains cautery artifact. The lumen of the gallbladder contains greenish mucoid bile and multiple yellow calculi ranging in size from 0.7 to 1.5 cm. The mucosa is bile-stained and without any mass lesions. The gallbladder wall averages 0.5 cm in thickness and is free of mass lesions. Jailor sections of the gallbladder and the cystic duct at margin of resection are submitted in one cassette. / AM:rizwana 06/21/19 Sections of the gallbladder wall reveal congested, hemorrhagic cut surfaces. More sections are submitted in three more cassettes. / SJ:rizwana 06/24/19 TC:2 CPT: 22617
--- NOTE | 2019-06-20 08:58 | PCM.HP.BLA ---
Problem List (1) Acute cholecystitis Status: Acute History and Physical Date of Admission: 06/20/19 Intake Vital Signs 06/19/19 Height 5 ft 2 in 06/19/19 Weight: 290 lb 06/19/19 BMI 53.0 06/19/19 BP 133/85 H 06/19/19 Blood Pressure Location Rt brachial 06/19/19 Position Sitting 06/19/19 Respiration 16 06/19/19 Pulse 93 06/19/19 Pulse Source Monitor 06/19/19 Temp 98.5 F 06/19/19 Temp Source Oral 06/19/19 Pulse Oximetry (%) 95 06/19/19 Oxygen Delivery Method room air Intake Visit Reasons: F/U GALLBLADDER DISCHARGED [facility] ER 06/15 Credit Report Checker Required: No Is patient in pain?: Yes (RUQ/ Right flank) Allergies No Known Allergies Allergy (Verified 06/19/19 15:03) Medications Ethinyl Estradiol/Drospirenone [Drospirenone-Ee 3-0.02 mg Tab] 1 ea PO DAILY 06/16/19 [History Confirmed 06/19/19] Ondansetron [Zofran Odt] 4 mg PO Q8H PRN PRN #10 tab 06/16/19 [Rx Confirmed 06/19/19] amoxicillin 875 mg-potassium clavulanate 125 mg tablet 1 tab PO BID #2 tab 06/19/19 [Rx Confirmed 06/19/19] PFSH Medical History Right flank pain (Acute) RUQ pain (Acute) Cholecystitis (Acute) Abdominal pain (Acute) Gestational diabetes mellitus (GDM) affecting (Chronic) malpresentation (Chronic) Surgical History History of (Acute) Hx of tonsillectomy (Acute) Family History Father Diabetes Heart disease Hypertension CHF (congestive heart failure) High cholesterol Social History (Updated 06/19/19 @ 15:[address] Martin Osorio MD) Smoking Status: Former smoker second hand exposure: No alcohol intake: never substance use type: does not use caffeine: Yes what type of physical activity do you participate in: none frequency: does not exercise HPI HPI HPI: AKBAR COOK, is a 34 F who presents to the office today for HPI HPI HPI: AKBAR COOK, is a 34 F who presents to the office today for acute cholecystitis. Patient presented to the emergency room with nausea and vomiting and epigastric pain radiating to the right posterior back. The patient was sent home and since then has reported continued pain which decreased a little bit today and nausea. ROS General General: No weight change, appetite, fatigue, colon cancer, breast cancer or weakness HEENT HEENT: No difficulty swallowing, eye injury, eye surgery, swollen glands or hoarseness Endo Endocrine: No thyroid disease, diabetes mellitus, thyroid cancer, Hair loss, heat intolerance or cold intolerance Skin Skin: No rash or changing moles Musc Musculoskeletal: No back problems, arthritis, rheumatoid arthritis, gout or joint pain Neuro Neurologic: No weakness Exam Const General: cooperative Nutritional Appearance: obese morbidly obese Orientation: alert, oriented x3 HENMT Head: normal to inspection Ears: hearing grossly normal bilaterally Eyes General: appearance normal, both eyes and all related structures Visual Chung: normal visual chung by confrontation Neck Neck: normal visual inspection Chest Chest palpation & inspection: normal inspection of the chest Resp Effort & Inspection: normal respiratory effort Auscultation: clear to auscultation bilaterally Cardio Rate: regular rate Rhythm: regular rhythm GI Inspection: non-distended Palpation: soft, tender in the RUQ Musc Cervical Spine: normal cervical lordosis, cervical ROM normal Skin General: no rashes or lesions noted Neuro General: alert, oriented x3 Cranial Nerves: CN's II-XI intact bilaterally Cognition: normal cognition Extrem General: normal to inspection, full ROM Psych Appearance: grossly normal Affect: normal affect Assessment & Plan Problems 1. Acute cholecystitis K81.0 Plan The patient presented to the emergency room 3 days ago with right upper quadrant pain rating to the back as well as nausea and vomiting. Patient had ultrasound showed a lot of gallstones as well as a 3 mm gallbladder wall with a positive Berger sign. At that time the patient had an elevated white count with left shift. I believe the patient likely had acute cholecystitis and may continue to have acute cholecystitis. She is not tolerating regular food since the eighth. She is still having right upper quadrant pain. I highly recommended to the patient that she have a laparoscopic cholecystectomy as soon as possible. The patient was very hesitant about surgery but I did describe to her the risks of not having surgery including necrosis of the gallbladder and sepsis. I discussed the procedure in detail with the patient. I discussed the risks, benefits, and alternatives of the procedure. I discussed the risks including but not limited to bleeding, infection, injury to surrounding organs such as the liver, bile duct, bowels. I did discuss the possibility of having to convert to an open procedure as well as the possibility that if any injuries occurred this may necessitate further surgery at a tertiary care center. After a lot of discussion the patient did decide to proceed with laparoscopic cholecystectomy. I will give her Augmentin for tonight and tomorrow morning and I instructed her to stay n.p.o. after midnight and I will perform a laparoscopic cholecystectomy tomorrow afternoon. Martin Osorio MD Pager: [facility] [address] [place] [address], [address] [place] [address] Office:
--- NOTE | 2019-06-20 12:01 | EKG12_ITS ---
Test Reason : POST OP SOB Blood Pressure : / mmHG Vent. Rate : 089 BPM Atrial Rate : 089 BPM P-R Int : 180 ms QRS Dur : 076 ms QT Int : 366 ms P-R-T Axes : 034 001 033 degrees QTc Int : 445 ms Normal sinus rhythm Septal infarct , age undetermined Abnormal ECG Confirmed by YENNIFER WHITEHEAD, CAITLIN ([id number]), medical editor NORY HANNA ([id number]) on 06/25/2019 7:54:10 AM Referred By: Martin Osorio Confirmed By:CAITLIN DE OLIVEIRA MD
[2019-06-20 12:34] LABS: Internal QC Validated? YES +Cl - CLEAR BKGD; Pregnancy, Urine Negative Negative
[2019-06-20] MEDS: Lactated Ringers 1,000 ML 100 ML IV (12:39)
--- NOTE | 2019-06-20 13:00 | RAD_ITS ---
PROCEDURE: INTRAOPERATIVE CHOLANGIOGRAM DATE OF EXAMINATION: 06/20/2019 INDICATION: Female, 34 years old. Following a laparoscopic cholecystectomy an intraoperative cholangiogram was performed by the surgeon. FLUOROSCOPY TIME (if supplied): (0:41) minutes/seconds. Chemotherapy of dose: 45.6 mGy. 3 fluoroscopic runs, 256 images. TECHNIQUE: Under fluoroscopic guidance an intraoperative cholangiogram was performed with serial digital images obtained. FINDINGS: There is normal opacification of the common bile duct, hepatic duct, right and left hepatic ducts. The ducts are normal in size. There is no mucosal irregularity or intraluminal filling defects. The contrast flows into the second portion of the duodenum. RAD/Cholangiogram/ O R,Initial IMPRESSION: Normal intraoperative cholangiogram. Electronically Signed: Coy Estrada MD (Brooks) at 13:01 EDT , Service support ,
[2019-06-20] MEDS: Bupiv/Epi 0.25% 30 ML Vial (14:50)
--- NOTE | 2019-06-20 15:10 | OP.PCM_ITS ---
Problem List (1) Acute cholecystitis Status: Acute Report of Operation Date of Procedure: 06/20/19 Pre-Operative Diagnosis: Acute cholecystitis Post-Operative Diagnosis: Same Surgery/Procedure Performed:: Laparoscopic cholecystectomy with cholangiogram Specimen's removed: Gallbladder and contents Description of Procedure: After obtaining informed consent patient was brought back to the operating room. General anesthesia was induced. The abdomen was prepped and draped in usual sterile fashion. A small incision was made in the right upper quadrant. A 5 mm port was placed with Visiport technique. The abdomen was inflated to 15 mmHg. Next a camera was introduced into the abdomen and the abdomen was inspected. Under direct visualization a 12 mm port was placed through an incision superior to the umbilicus as well as a 5 mm port in the subcostal space and a 5 mm port in the subxiphoid space. Next the gallbladder was elevated and retracted toward the right shoulder. It was incredibly inflamed and adherent to the pericolonic fat. The peritoneum was stripped from the gallbladder. The infundibulum was located and retracted laterally. Next the triangle of Calot was dissected and the cystic duct and cystic artery were identified. Cholangiograms were performed. The Diaz clamp was used to clamp across the infundibulum and the catheter needle was inserted into the gallbladder. Under fluoroscopy contrast was instilled into the gallbladder and the common duct, cystic duct as well as proximal hepatic ducts were identified. There was good filling of the duodenum. There were no filling defects noted in the common bile duct. The clamp was removed as well as the needle and the infundibulum was grasped once more. Three hemolock clips were placed across the cystic duct. The cystic duct was then divided leaving 2 clips on the stump. The cystic artery was clipped and divided in the same fashion. The hook cautery was then used to take the gallbladder off of the gallbladder bed. Hemostasis was obtained. Gallbladder fossa was irrigated and no active bleeding or bile leakage was noted. Next the camera was introduced in the subxiphoid port. An Endopouch bag was placed through the umbilical port and the gallbladder was placed into it. The gallbladder was then removed through the umbilical incision. The camera was then reinserted through the umbilical port. The gallbladder fossa was inspected once more and noted to be hemostatic with no leaking bile. Surgicel powder was sprayed on the gallbladder fossa. The abdomen was suctioned dry. The umbilical port was then removed. Next using an 0 Vicryl suture the umbilical fascia was closed with 2 interrupted sutures using the Tiago Cramer needle. The 5 mm ports were malena aracelis under direct visualization. The umbilical port site was irrigated local anesthetic was administered to all the incisions. All the incisions were closed with interrupted subcuticular 4-0 Monocryl sutures followed by Steri-Strips and dressings. The patient was awoken and taken to PACU in stable condition. - Admit VTE Documentation VTE Mechan Device Prophylaxis: SCD's
--- NOTE | 2019-06-20 15:15 | PCM.DC.GB ---
Discharge Diet: Light diet - advance as tolerated Discharge Activity: Return to Normal Activity, May Not Drive - for 2-3 days or while taking narcotic pain medicataions., - - Do not drive, work heavy equipment or sign legal documents for 24 hours. May shower in (days): 1 - with the bandage in place. Lifting Restrictions: 20 lbs for 2 weeks Additional Activity Instructions:: Pain medication may cause nausea. You should typically eat light foods as you take your pain medications. Pain medication may also cause constipation. If this is a problem for you, please discuss with your doctor. Call your doctor if your incision/area has: Continuous Slow Oozing, Sudden Increased Bleeding, Increased Pain/ Swelling, Increased Redness, Foul Smelling Discharge, Fever of 101 or Higher Call your doctor if you observe: Fever of 101 or Higher Suture Line Care: Avoid Pulling/Pushing, Avoid Pinching/Bending Additional Dressing/Incision Instructions:: Leave operative bandaids on for 2 days. When you remove dressing, leave Steri-Strips on until your follow-up appointment, or until the Steri-Strips fall off on their own. Allergies/Adverse Reactions: Allergies No Known Allergies Allergy (Verified 06/20/19 12:04) Medications to take at Discharge Ethinyl Estradiol/Drospirenone [Drospirenone-Ee 3-0.02 mg Tab] 1 ea PO DAILY 06/16/19 Ondansetron [Zofran Odt] 4 mg PO Q8H PRN PRN #10 tab 06/16/19 amoxicillin 875 mg-potassium clavulanate 125 mg tablet 1 tab PO BID #2 tab 06/19/19 Hydrocodone/Acetaminophen [Hydrocodon-Acetaminophen 5-325] 1 - 2 tab PO Q6H PRN 7 Days #30 tab 06/20/19 The following prescriptions were given: Hydrocodone/Acetaminophen [Hydrocodon-Acetaminophen 5-325] 1 - 2 tab PO Q6H PRN 7 Days #30 tab PRN Reason: Pain Score 4-10/10 Transmission Status: Sent to [facility] Test Results: Test results from this visit will be discussed in further detail at your follow-up appointment, if applicable. Please Follow Up With: Martin Osorio MD When: Please call to schedule 2 week follow up appointment. [phone]
[2019-06-20] MEDS: Ipratropium/Albuterol Sulfate 3 ML AMPUL.NEB INHALATION (16:53)
--- NOTE | 2019-06-20 17:07 | EKG12_ITS ---
Test Reason : PRE OP Blood Pressure : / mmHG Vent. Rate : 083 BPM Atrial Rate : 083 BPM P-R Int : 166 ms QRS Dur : 074 ms QT Int : 362 ms P-R-T Axes : 034 -07 023 degrees QTc Int : 425 ms Normal sinus rhythm Septal infarct , age undetermined Inferior infarct , age undetermined Abnormal ECG No previous ECGs available Confirmed by YENNIFER WHITEHEAD, CAITLIN ([id number]), graphics editor NORY HANNA ([id number]) on 06/25/2019 7:54:27 AM Referred By: Martin Osorio Confirmed By:CAITLIN DE OLIVEIRA MD
[2019-06-20 17:25] LABS: Base Excess -3 mmol/L (-2 to +2); Bicarbonate 22.8 mmol/L (22-26); Blood Gas Specimen Type ART; O2 Delivery Device Nasal Can; PO2 80 mmHG (75-100); SITE L Radial; SO2 95 % (95-99); Time Given 1719; Total Carbon Dioxide 24 mmol/L; pCO2 40.8 mmHg (35-45); pH 7.36 (7.35-7.45)
--- NOTE | 2019-06-20 17:54 | SUR.PHASEI ---
phone call to Deb Erickson regarding morphine admnistration in OR. morphine 10mg total given 5mg aprox 1455 then 5mg aprox 1500
[2019-06-20] MEDS: Acetaminophen 325 MG Tablet 650 MG PO (20:07)
[2019-06-20] MEDS: HYDROcodone Bitartrate/Apap 5/325 Tablet PO (21:44)
--- NOTE | 2019-06-20 23:48 | NURSING ---
On continuous pulse ox, spo2 drops to 85% on RA while sleeping. Pt placed back on 2L NC. Pt refused IS teaching and usage at this time bc she was tired and had a long day
[2019-06-21] MEDS: Ibuprofen 600 MG Tablet PO ×2 (00:47→10:52)
[2019-06-21 04:00] VITALS: BP 152/84; PULSE 95; RESP 18; TEMP 36.8; O2SAT 95
[2019-06-21] MEDS: Acetaminophen 325 MG Tablet 650 MG PO (04:35)
--- NOTE | 2019-06-21 06:48 | PCM.PN.SRG ---
Subjective: Patient is doing well this morning with no issues. - Physical Exam Vitals/I&O's: Vital Signs Temp Pulse Resp BP Pulse Ox 98.3 F 95 18 152/84 H 95 06/21/19 04:00 06/21/19 04:00 06/21/19 04:00 06/21/19 04:00 06/21/19 04:00 Oxygen Flow Rate (L/min) 2 Oxygen Delivery Method Nasal Cannula Weight: 291 lb 0.163 oz Body Mass Index (BMI) 53.2 Intake and Output for Last 24 Hours 06/19/19 06/20/19 06/21/19 23:59 23:59 23:59 Intake Total 1008.33 / 1208.33 700 / 700 Output Total 550 / 550 Balance 1008.33 / 1058.33 150 / 150 General: Alert, Oriented x3 Neck: No JVD Lungs: Normal air movement Cardiovascular: Regular rate, Regular Rhythm Abdomen: Soft, Non-Distended Laboratory Results 06/20/19 12:20: Urine Test Negative 06/20/19 16:15: Troponin I < 0.015 06/20/19 17:20: Specimen Type ART, Sample Site L Radial, pH 7.36, Bicarbonate Actual 22.8, POC Total CO2 24, Base Excess -3 L, O2 Saturation 95, ABG pCO2 40.8, ABG pO2 80, O2 Delivery Device Nasal Can, Liter Flow 2.0, Blood Gas Notified Whom OTHER, Blood Gas Notified Time 9328 Current Medications Acetaminophen (Tylenol) 650 mg PO Q6H PRN PRN PRN Reason: Pain Score -01/17 Last Admin: 06/21/19 04:35 Dose: 650 mg Documented by: Hydrocodone Bitart/Acetaminophen ([place] 5mg-325mg) 1 - 2 tablet PO Q6H PRN PRN PRN Reason: -01/17 Last Admin: 06/20/19 21:44 Dose: 1 tablet Documented by: Lactated Ringer's () 1,000 mls @ 15 mls/hr IV .Q48H RERE Last Infusion: 06/20/19 21:44 Dose: 15 mls/hr Documented by: Sodium Chloride () 250 mls @ 15 mls/hr IV .[id number] PRN PRN Reason: Saline Flush Sodium Chloride () 250 mls @ 15 mls/hr IV .[id number] PRN PRN Reason: Additional IVPB Infusion Ibuprofen (Motrin) 600 mg PO Q6H PRN PRN PRN Reason: Pain Score 1-01/17 Last Admin: 06/21/19 00:47 Dose: 600 mg Documented by: Morphine Sulfate () 2 - 4 mg IV Q2H PRN PRN PRN Reason: 8-01/17 Morphine Sulfate () 2 - 4 mg IV Q2H PRN PRN PRN Reason: 8-01/17 Ondansetron HCl (Zofran) 4 mg IV Q6H PRN PRN PRN Reason: NAUSEA Sodium Chloride () 10 - 40 ml IV UD PRN PRN Reason: SALINE FLUSH Medical Necessity - Tobacco Use Smoking Status: Former smoker Assessment/Plan All Active Problems (Last Reviewed 06/19/19 @ 15:03 by Yaz Jewell) Acute cholecystitis (Acute) History of (Acute) Hx of tonsillectomy (Acute) Right flank pain (Acute) RUQ pain (Acute) Cholecystitis (Acute) Abdominal pain (Acute) 34-year-old female with acute cholecystitis 1. Patient is doing better this morning. She was admitted to the ICU after surgery due to respiratory issues after surgery. Once the narcotics wore off she was breathing easier and her pain is been well controlled with only Tylenol and ibuprofen overnight. Will DC patient home. Martin Osorio MD Pager: [facility] [address] [place] [address], [address] [place] [address] Office:
[2019-06-21 08:15] VITALS: BP 154/83; PULSE 87; RESP 16; TEMP 36.7; O2SAT 94
== END 2019-06-21 11:44 | disposition home or self-care (01) ==
LOC: SDC 19:10 → ICU 06-21 08:25 → MS2 06-21 08:25
PROVIDERS: Anesthesiology; Admitting Provider Surgery; Referring Provider Surgery; Visit Provider Surgery
PROC: (CPT 47610; principal; 2019-06-20 13:45)
DX: K80.12 Calculus of gallbladder with acute and chronic cholecystitis without obstruction (principal); Z87.891 Personal history of nicotine dependence; E66.01 Morbid (severe) obesity due to excess calories; Z68.43 Body mass index [BMI] 50.0-59.9, adult; Z71.3 Dietary counseling and surveillance
CPT/HCPCS: 00790; 47563; 36600; 74300; 76000; 81025; 82803; 84484; 88304; 88305; 93005; 94640; 99218; J7120; G0378; G0379; J2405